=== PATIENT | female | born 1945 | race Caucasian/White ===

== ENCOUNTER 2022-12-23 10:09 | Outpatient (OUT) | payer OTHER, SELFPAY ==
--- NOTE | 2022-12-23 10:19 | MM_ITS ---
Patient: MARISOL DUBON Exam Date: 12/23/2022 : 1945 Gender:F Ordering : DR SAURAV WASHBURN Admission #: [id number] Family : Order #: [id number] CLICK HERE TO VIEW EXAM RADIOLOGY REPORT PROCEDURE: MM TOMOSYNTHESIS SCREENING BI COMPARISON: MG MAMM SCREEN 3D ANA LILIA CAD, 12/18/2021. MG MAMM SCREEN 3D ANA LILIA CAD, 12/05/2020. MG MAMM SCREEN ANA LILIA W CAD, 01/03/2019. MG MAMM SCREEN ANA LILIA W CAD, 10/25/2015. INDICATIONS: Screening mammogram Z12.31 Calculator Name NCI Breast Cancer Risk Assessment Tool 5 Year Breast Cancer Risk 2.00% Lifetime Breast Cancer Risk 4.00% Personal Breast Cancer No Personal Ovarian Cancer No Treatments None Family Cancers Sister with cervical cancer at age 47; Aunt-maternal with stomach cancer at age 50. LOCATION: [facility] BREAST COMPOSITION: Heterogeneously dense,which may obscure small masses. FINDINGS: DIAGNOSTIC CATEGORY 2--BENIGN FINDING: RIGHT BREAST: No significant suspicious finding. Scattered benign-appearing calcifications are present. No significant change has occurred. LEFT BREAST: No significant suspicious finding. Scattered benign-appearing calcifications are present. No significant change has occurred. RECOMMENDATIONS: ROUTINE MAMMOGRAM AND CLINICAL EVALUATION IN 12 MONTHS. PLEASE NOTE: A NORMAL MAMMOGRAM DOES NOT EXCLUDE THE POSSIBILITY OF BREAST CANCER. A CLINICALLY SUSPICIOUS PALPABLE LUMP SHOULD BE BIOPSIED. Dictated by: Dirk Puga M.D. on 12/23/2022 at 12:56 Approved by: Dirk Puga M.D. on 12/23/2022 at 12:59
== END 2022-12-23 10:10 | disposition home or self-care (01) ==
LOC: MAMMO 10:12
DX: Z12.31 Encounter for screening mammogram for malignant neoplasm of breast (principal); Z80.0 Family history of malignant neoplasm of digestive organs; Z80.49 Family history of malignant neoplasm of other genital organs
CPT/HCPCS: 77063; 77067

== ENCOUNTER 2024-02-17 09:40 | Outpatient (OUT) | payer OTHER, SELFPAY ==
--- NOTE | 2024-02-17 09:46 | MM_ITS ---
Patient Name: MARISOL DUBON MR#: [id number] : 1945 Exam Date: 02/17/2024 Ordering Doctor: DR SAURAV WASHBURN RADIOLOGY REPORT PROCEDURE: MM TOMOSYNTHESIS SCREENING BI COMPARISON: MM TOMOSYNTHESIS SCREENING BI, 12/23/2022. MG MAMM SCREEN 3D ANA LILIA CAD, 12/18/2021. MG MAMM SCREEN 3D ANA LILIA CAD, 12/05/2020. MG MAMM SCREEN ANA LILIA W CAD, 10/25/2015. INDICATIONS: Screening Calculator Name NCI Breast Cancer Risk Assessment Tool 5 Year Breast Cancer Risk 1.90% Lifetime Breast Cancer Risk 3.40% Personal Breast Cancer No Personal Ovarian Cancer No Treatments None Family Cancers Sister with cervical cancer at age 47; Aunt-maternal with stomach cancer at age 50. LOCATION: [facility] BREAST COMPOSITION: The breasts are heterogeneously dense,which may obscure small masses. FINDINGS: DIAGNOSTIC CATEGORY 2--BENIGN FINDING: RIGHT BREAST: No significant suspicious finding. Scattered benign-appearing calcifications are present. No significant change has occurred. LEFT BREAST: No significant suspicious finding. Scattered benign-appearing calcifications are present. No significant change has occurred. RECOMMENDATIONS: ROUTINE MAMMOGRAM AND CLINICAL EVALUATION IN 12 MONTHS. PLEASE NOTE: A NORMAL MAMMOGRAM DOES NOT EXCLUDE THE POSSIBILITY OF BREAST CANCER. A CLINICALLY SUSPICIOUS PALPABLE LUMP SHOULD BE BIOPSIED. Dictated by: Dirk Puga M.D. on 02/17/2024 at 15:13 Approved by: Dirk Puga M.D. on 02/17/2024 at 15:15
== END 2024-02-17 09:41 | disposition home or self-care (01) ==
LOC: MAMMO 09:40
DX: Z12.31 Encounter for screening mammogram for malignant neoplasm of breast (principal); Z80.8 Family history of malignant neoplasm of other organs or systems; Z80.0 Family history of malignant neoplasm of digestive organs
CPT/HCPCS: 77063; 77067

== ENCOUNTER 2025-03-15 10:15 | Outpatient (OUT) | payer OTHER, SELFPAY ==
--- OUTSIDE RECORDS SUMMARY | 2025-03-15 10:22 | XMS_ITS | CCD ---
Author Organization [facility] Care Team Providers Care Bench Molder Apprentice Name Role Phone WEST, DR LONNIE Sánchez Consulting Unavailable MADDISON, DR MG Admitting Unavailable MADDISON, DR MG Attending Unavailable REQUEST, DR AGUIRRE LISTED Primary Care Unavaila ble MADDISON, DR MG Consulting Unavailable Problems Problem ClassificationProblemDateDocumented DateEpisodic/ChronicOther screening for suspected conditions (not mental disorders or infectious disease) (4 sources)Encounter for screening mammogram for malignant neoplasm of breast; Translations: [ENC SCR MAMMO MALIG NEOPLASM BREAST]Onset: [id number] Residual codes; unclassified (1 source)Family history of malignant neoplasm of digestive organs; Translations: [FAM HX MALIG NEOPLASM DIGESTIV ORGN]Onset: 13-74-8695Gfvtjdoc Residual codes; unclassified (1 source)Family history of malignant neoplasm of other genital organs; Translations: [FAM HX MALIG NEOPLSM OTH GENIT ORGN]Onset: 73-93-3256Nbimhebf Results Test NameValueInterpretationReference RangeFacilityMG MAMM SCREEN 3D ANA LILIA CADon [id number] MAMM SCREEN 3D ANA LILIA CADPatient: MARISOL DUBON. Exam Date: 12/18/2021 : 1945 Gender:F Ordering : DR SAURAV WASHBURN Admission #: [id number] Family : Order #: [id number] CLICK HERE TO VIEW EXAM RADIOLOGY REPORT PROCEDURE: MAMMOGRAM SCREENING 3D BILATERAL CAD COMPARISON: MG MAMM SCREEN ANA LILIA W CAD, 01/03/2019. MG MAMM SCREEN 3D ANA LILIA CAD, 12/05/2020. INDICATIONS: Screening mammography Calculator Name NCI Breast Cancer Risk Assessment Tool 5 Year Breast Cancer Risk 2.00% Lifetime Breast Cancer Risk 4.20% Personal Breast Cancer No Personal Ovarian Cancer No Treatments None Family Cancers Sister with cervical cancer at age 47; Aunt-maternal with stomach cancer at age 50. LOCATION: [facility] BREAST COMPOSITION: Heterogeneously dense,which may obscure small masses. FINDINGS: DIAGNOSTIC CATEGORY 2--BENIGN FINDING. NO CHANGE FROM COMPARISON. Scattered benign-appearing calcifications are present. Scattered benign-appearing lymph nodes are present. RIGHT BREAST: No significant suspicious finding. LEFT BREAST: No significant suspicious finding. RECOMMENDATIONS: ROUTINE MAMMOGRAM AND CLINICAL EVALUATION IN 12 MONTHS. PLEASE NOTE: A NORMAL MAMMOGRAM DOES NOT EXCLUDE THE POSSIBILITY OF BREAST CANCER. A CLINICALLY SUSPICIOUS PALPABLE LUMP SHOULD BE BIOPSIED. Dictated by: Lonnie Carrillo MD on 12/18/2021 at 12:27 Approved by: Lonnie Carrillo MD on 12/18/2021 at 12:30[facility] Encounters Encounter DateEncounter [facility] ProviderFacilityStart: 12-18-2021 End: 30-54-5505cersmsolwgBH LONNIE CARRILLOFacility:H1 Payers DatePayer CategoryPayerPolicy [id number] Summary Purpose Family History No Family History Records Found Advance Directives No Advanced Directives Records Found Additional Source Comments INFORMATION SOURCE (unrecogn ized section and content) DATE CREATED AUTHOR 12/20/2021 [facility] FOR RECORDS PERTAINING TO PATIENTS WHO ARE OR HAVE BEEN ENROLLED IN A CHEMICAL DEPENDENCY/SUBSTANCEABUSE PROGRAM, SOME INFORMATION MAY BE OMITTED. This clinical summary was aggregated from multiple sources. Caution should be exercised in using it in the provision of clinical care. This summary normalizes information from multiple sources, and as a consequence, information in this document may materially change the coding, format and clinical context of patient data. In addition, data may be omitted in some cases. CLINICAL DECISIONS SHOULD BE BASED ON THE PRIMARY CLINICAL RECORDS. [employer] provides no warranty or guarantee of the accuracy or completeness of information in this document.
--- NOTE | 2025-03-15 10:24 | MM_ITS ---
Patient Name: MARISOL DUBON MR#: [id number] : 1945 Exam Date: 03/15/2025 Ordering Doctor: DR SAURAV WASHBURN RADIOLOGY REPORT PROCEDURE: MM TOMOSYNTHESIS SCREENING BI COMPARISON: MM TOMOSYNTHESIS SCREENING BI, 02/17/2024. MM TOMOSYNTHESIS SCREENING BI, 12/23/2022. MG MAMM SCREEN 3D ANA LILIA CAD, 12/18/2021. MG MAMM SCREEN ANA LILIA W CAD, 10/25/2015. INDICATIONS: Screening Calculator Name NCI Breast Cancer Risk Assessment Tool 5 Year Breast Cancer Risk 1.90% Lifetime Breast Cancer Risk 3.10% Personal Breast Cancer No Personal Ovarian Cancer No Treatments None Family Cancers Sister with cervical cancer at age 47; Aunt-maternal with stomach cancer at age 50. LOCATION: [facility] BREAST COMPOSITION: The breasts are heterogeneously dense, which may obscure small masses. FINDINGS: DIAGNOSTIC CATEGORY 1--NEGATIVE. RIGHT BREAST: No significant suspicious finding. LEFT BREAST: No significant suspicious finding. RECOMMENDATIONS: ROUTINE MAMMOGRAM AND CLINICAL EVALUATION IN 12 MONTHS. Dictated by: Saul Garza MD on 03/15/2025 at 16:32 Approved by: Saul Garza MD on 03/15/2025 at 16:35
== END 2025-03-15 10:16 | disposition home or self-care (01) ==
LOC: MAMMO 10:17
DX: Z12.31 Encounter for screening mammogram for malignant neoplasm of breast (principal); Z80.0 Family history of malignant neoplasm of digestive organs; Z80.8 Family history of malignant neoplasm of other organs or systems
CPT/HCPCS: 77063; 77067